=== PATIENT | female | born 1960 | race Caucasian/White ===

== ENCOUNTER → 2023-07-15 14:36 | Outpatient (REF) | payer OTHER, SELFPAY | LOC: WDC 14:36 | PROVIDERS: ATTENDING PHYSICIAN Obstetrics & Gynecology Gynecology; FAMILY PHYSICIAN Internal Medicine | DX: Z12.31 Encounter for screening mammogram for malignant neoplasm of breast (principal); Z78.0 Asymptomatic menopausal state | CPT/HCPCS: 77063; 77067; 77080 ==

== ENCOUNTER → 2023-08-26 15:16 | Outpatient (REF) | payer OTHER, SELFPAY | LOC: RAD 15:16 | PROVIDERS: ATTENDING PHYSICIAN Nurse Practitioner | DX: M25.561 Pain in right knee (principal) | CPT/HCPCS: 73564 ==

== ENCOUNTER → 2023-09-22 10:59 | Outpatient (REF) | payer OTHER, SELFPAY | LOC: MRI 3T 10:59 | PROVIDERS: ATTENDING PHYSICIAN Physician Assistant; FAMILY PHYSICIAN Internal Medicine | DX: M25.561 Pain in right knee (principal) | CPT/HCPCS: 73721 ==

== ENCOUNTER 2023-09-27 22:33 | Inpatient (IN) | payer OTHER, SELFPAY ==
[2023-09-27 16:14] VITALS: BP 125/59
--- NOTE | 2023-09-27 16:18 | ED.GENMED ---
History of Present Illness
General
Chief Complaint: Fainting/Passed Out
Source: patient
Exam Limitations: none
Time Seen by Provider: 09/27/23 16:08
Travel History
Have you had any contact with someone who has COVID-19?: No
Do you have any symptoms of coronavirus? Fever > 100 degrees, chills, cough, shortness of breath, sore throat, loss of taste or smell, muscle aches, or headache?: No
History of Present Illness
History of Present Illness:
63-year-old female otherwise fairly healthy presents complaining of pain to the left arm and wrist after fall. She tripped and hit the left side of her body on pavement. She hit her face as well. Following the fall she passed out at the scene and
passed out in room for EMS and nearly passed out while here in the emergency room. She believes this was a response to her pain she is experiencing to the left arm. She denies chest pain or shortness of breath. There is no preceding palpitations
or dizziness prior to the fall. She was brought here in a cervical collar. She is not anticoagulated. No other
Phy Exam
Physical Exam
Physical Exam:
General: Well-appearing female no acute respiratory distress
HEENT: Normocephalic pupils equal round reactive to light cervical spine and collar
Heart: Regular rate and rhythm no murmurs
Lungs: Clear no wheeze
Musculoskeletal exam: Cervical spine and collar nontender through the collar. There is swelling and deformity noted to the left upper arm. The left wrist is slightly tender. The elbow is nontender
Neurologic: Alert and oriented no facial asymmetry conversing appropriately
Ext: no cyanosis
Course
Orders/Labs/Results
Orders:
Orders
09/27/23 16:05
EKG [Electrocardiogram (*1)] Urgent
Reason for Study: Chest Pain
EKG- Treatment ONCE
09/27/23 16:11
Complete Blood Count/With Diff Urgent
Comprehensive Metabolic Panel Urgent
09/27/23 16:20
CT Cervical Spine W/o Iv Contr Urgent
Comment:
Reason For Exam: fall, syncope
CT Head W/o Iv Contrast Urgent
Comment:
Reason For Exam: fall
CR Humerus - Left Min 2 Views* Urgent
Comment:
Reason For Exam: pain, swelling, fall
CR Wrist - Left Min 3 Views Urgent
Comment:
Reason For Exam: fall
09/27/23 16:44
Troponin I Routine
09/27/23 17:36
Ketorolac [Toradol] 15 mg IV NOW STA
09/27/23 19:08
HYDROmorphone [Dilaudid] 0.5 mg IV NOW STA
09/27/23 20:43
Ondansetron Orally Disint [Zofran Odt (Orally Disintegrating)] 4 mg PO NOW STA
09/27/23 20:48
Ondansetron Orally Disint [Zofran Odt (Orally Disintegrating)] 4 mg .ROUTE .STK-MED ONE
09/27/23 21:17
Immobilizer [Braces/Immobilizers] As Directed
Type of Brace/Immobilizer: Splint
Location for Brace/Immobilizer: Left Upper Arm
09/27/23 21:37
ORTHOPEDIC CONSULT Routine
Consulting Provider: Jonny Charles
Was physician already notified: Yes
Reason for consult: right humerus fx
Abnormal Lab Results
09/27/23
16:11
RBC 3.64 L 10^6/uL
(4.20-5.40)
Hgb 11.4 L g/dL
(12.0-16.0)
Hct 32.6 L %
(37.0-47.0)
MCH 31.3 H pg
(27.0-31.0)
Abs Immat Gran (auto) 0.1 H 10^3/uL
(0-0.05)
Absolute Monos (auto) 1.0 H 10^3/uL
(0.1-0.6)
Immature Gran % 0.8 H %
(0-0.5)
Monocytes % 9.4 H %
(1.7-9.3)
BUN 25 H mg/dl
(7-17)
Glucose 128 H mg/dl
(70-99)
09/27/23 16:11
09/27/23 16:11
Vital Signs
Initial and Last Documented VS:
Initial Vital Signs
Temp Pulse Resp BP Pulse Ox
98.3 F 63 20 125/59 98
09/27/23 16:14 09/27/23 16:14 09/27/23 16:14 09/27/23 16:14 09/27/23 16:14
Last Documented Vital Signs
Temp Pulse Resp BP Pulse Ox
98.3 F 63 20 125/59 98
09/27/23 16:14 09/27/23 16:14 09/27/23 16:14 09/27/23 16:14 09/27/23 16:14
MDM/Problems Addressed
Differential Diagnosis Includes:
Fall with left arm pain. She also has had recurrent vasovagal of her syncopal episode since the fall. I personally visualized x-rays of the left humerus which demonstrate a displaced and angulated midshaft fracture. She is intact neurovascular to
the hand. Left wrist x-rays were negative. CT of the head and cervical spine were also negative. Patient reevaluated multiple times. She has recurrent near syncope since the fall including during splint application and once trying to stand out
of bed. Discussed fracture with orthopedics who recommended the splint application. I applied coapt splint using cast padding 3 inch OCL and Mario Alberto bandages. Given the recurrent symptoms of near syncope or vasovagal event will keep in hospital.
*Critical Care Note
Total Time (30-74mins, 75-104mins- exclusive of procedures): Not Applicable
Update Note
Update Note:
Fall with left arm pain. Following the fall she has multiple near syncopal versus syncopal episodes. EKG shows sinus rhythm without ischemia. Will place on monitor. Suspect near syncope may be pain related To vasovagal response. But will check
labs. Given the syncopal symptoms after fall CT head and cervical spine pending. X-ray left arm and left wrist pending
ED Attending Note
-
Portions of this chart may have been created with voice recognition software.� Occasional wrong word or��sound alike� substitutions may have occurred due to the inherent limitations of voice recognition software.
Discharge Plan
Departure
Patient Disposition: Admit
Date of Disposition: 09/27/23
Time of Disposition: 21:53
Admit to: Telemetry
Presentation/result/management discussed w/ accepting MD/DO: Hospitalist
Discharge Problem:
Near syncope, Fracture, humerus
Referrals:
Yamini Morgan MD [Family Provider] -
Interventions
Interventions:
*Risk Screen - Suicide Last Done: 09/27/23 16:52
*General Assessment Last Done: 09/27/23 16:52
*Neglect/Abuse Screening Last Done: 09/27/23 16:52
ED- Fall Risk Assessment Last Done: 09/27/23 16:52
*ED COVID-19 Vaccine History Last Done: 09/27/23 16:52
ED- Cardiac Assessment Last Done: 09/27/23 16:52
ED- Neurological Assessment Last Done: 09/27/23 16:52
Discharge Date and Time
Print Language: [place]
[2023-09-27 16:29] LABS: % Basophils 0.5 % (0-2); % Eosinophils 3.5 % (0-6); % Immature Granulocytes 0.8 % (0-0.5); % Lymphocytes 32.7 % (20.5-51.1); % Monocytes 9.4 % (1.7-9.3); % Neutrophils 53.1 % (42.2-75.2); Absolute Basophils 0.1 10^3/uL (0-0.2); Absolute Eosinophils 0.4 10^3/uL (0-0.7); Absolute Immature Granulocytes 0.1 10^3/uL (0-0.05); Absolute Lymphocytes 3.4 10^3/uL (1.2-3.4); Absolute Neutrophils 5.6 10^3/uL (1.4-6.5); Hematocrit 32.6 % (37.0-47.0); Hemoglobin 11.4 g/dL (12.0-16.0); Mean Corpuscular Hgb 31.3 pg (27.0-31.0); Mean Corpuscular Volume 89.6 fL (81.0-99.0); Nucleated Red Blood Cells % 0 %; Platelet Count 306 10^3/uL (130-400); Red Blood Cell Count 3.64 10^6/uL (4.20-5.40); Red Cell Dist. Width 12.2 % (11.5-14.5); White Blood Cell Count 10.5 10^3/uL (4.8-10.8)
[2023-09-27 16:39] LABS: ALT (SGPT) 24 U/L (0-35); AST (SGOT) 26 U/L (14-36); Albumin 4.3 g/dl (3.5-5.0); Alkaline Phosphatase 87 U/L (38-126); Blood Urea Nitrogen 25 mg/dl (7-17); Calcium 9.8 mg/dl (8.4-10.2); Carbon Dioxide 27 mmol/L (22-30); Chloride 99 mmol/L (98-107); Estimated Creatinine Clearance 92 ml/min; Glucose 128 mg/dl (70-99); Potassium 3.5 mmol/L (3.5-5.1); Sodium 135 mmol/L (135-145); Total Bilirubin 0.2 mg/dl (0.2-1.3); Total Protein 7.6 g/dl (6.3-8.2); eGFR > 60.00
[2023-09-27 17:12] LABS: Troponin I < 0.012 ng/ml
[2023-09-27] MEDS: TORADOL 15 MG IV (17:46)
[2023-09-27] MEDS: DILAUDID 0.5 MG IV (19:13)
[2023-09-27] MEDS: ZOFRAN ODT (ORALLY DISINTEGRATING) 4 MG PO (20:48)
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
[2023-09-27 23:13] VITALS: BP 125/58
--- NOTE | 2023-09-27 23:15 | PTCARENOTE ---
Pt arrived to unit and ambulated from the wheelchair to the bed with +1 assistance. Pt VSS and described 6/10 pain to humerus upon positional changes. Pt set up with IV fluids, telemetry monitoring applied, and pain managed with PRN. Pt oriented to
room and call cortés within reach.
[2023-09-27 23:45] VITALS: BP 127/67; BMI 37.1
[2023-09-28] VITALS (8 sets, daily range): BP systolic 99–149; BP diastolic 50–71; PULSE 74; O2SAT 96
[2023-09-28] MEDS: NSS 1000 IV (00:33)
[2023-09-28] MEDS: DILAUDID 0.5 MG IV ×2 (00:34→04:41)
--- NOTE | 2023-09-28 08:09 | CON.ORTHO ---
Consultation
-
Date/Time Consultation Requested: 09/27/2023; time unknown
Date/Time Consultation Performed: 09/28/2023; 0745
Requesting Provider: unknown
Performing Provider: Ilana Chandler PA-C / Dr. Jonny Charles
Reason for Consultation: Left humerus fracture
Consultation - Orthopedics
History
Ms. Fowler is a 63-year-old female with past medical history significant for breast cancer seen today for evaluation of her left arm. She reports she was out with friends yesterday when she fell and landed on her left arm. She reports
immediate onset of pain in the arm, and did have a subsequent syncopal episode secondary to pain. She presented to [facility] ED via EMS where x-rays revealed midshaft humerus fracture. She reports any pain in her arm is well-controlled
at present. She denies history of treatment for this arm in the past.
She does have a history of breast cancer status post mastectomy and sentinel node biopsy. She denies past medical history of CVA, DVT, NV or diabetes mellitus. She is not on any daily blood thinners. She lives at home with her . She
denies any known history of difficulty with anesthesia.
Allergies / Home Medications
Allergy/AdvReac Type Severity Reaction Status Date / Time
azithromycin Allergy Unknown Verified 09/27/23 18:51
levofloxacin [From Levaquin] Allergy Unknown Verified 09/27/23 18:50
Sulfa (Sulfonamide Allergy Unknown Verified 09/27/23 18:50
Antibiotics)
�Medication �Instructions �Recorded
Feosol 1 tab PO DAILY 09/27/23
M.V.I. Adult 1 tab PO DAILY 09/27/23
Medrol (Dereje) 4 mg PO DAILY PRN sunburn 09/27/23
Vitamin D3 2,000 units PO DAILY 09/27/23
collagen 1 cap PO DAILY 09/27/23
lysine 1 cap PO DAILY 09/27/23
Vital Signs / Lab Results
Temp Pulse Resp BP Pulse Ox
98.5 F 75 16 119/64 98
09/28/23 07:00 09/28/23 07:00 09/28/23 07:00 09/28/23 07:00 09/28/23 07:00
09/27/23 16:11
09/27/23 16:11
XR L Humerus IMPRESSION:
ACUTE FRACTURE of the LEFT MID HUMERAL DIAPHYSIS with severe displacement and angulation of the distal humeral shaft.
Directed exam of left upper extremity reveals splint intact to upper arm. No tenderness to palpation throughout the forearm, wrist or hand. Patient able to wiggle fingers, flex and extend wrist. Wrist extension does elicit pain. Sensation intact to
light touch. Palpable radial pulse.
Assessment / Plan
Left midshaft humerus fracture
--Unfortunately, Ana Maria sustained a midshaft humerus fracture with significant displacement in her fall. We recommend proceeding with surgical fixation of her fracture. We are hoping to do this with an intramedullary nail, but we did also discuss
the possibility of open reduction internal fixation. The risks, benefits, alternatives, recovery process and potential complications were discussed in detail. She verbalized understanding that radial nerve injury and subsequent wrist drop is a
risk of this fracture and surgical intervention. She would like to proceed with surgical intervention of her fracture. We will proceed with OR tomorrow for IM nail versus ORIF of her left humerus under the direction of Dr. Charles. Surgical and
blood consents are signed and in the patient's chart.
-- Continue with immobilization in splint and sling until surgery.
-- N.p.o. after midnight for OR 09/29/23.
-- Continue pain control per primary.
-- Ice for pain and edema control.
--T+S ordered.
-- Antibiotics ordered to OR.
-- Orthopedics will continue to follow along.
[2023-09-28] MEDS: DILAUDID 0.25 MG IV ×2 (08:55→22:04)
[2023-09-28] MEDS: ZOFRAN 4 MG IV (10:13)
--- NOTE | 2023-09-28 12:36 | CM ---
Patient seen bedside.
IA completed.
Patient lives with spouse in a 1 story home with basement and 2-3 steps.
Patient independent prior to admission without assistive devices.
Patient drives.
Patient s/p fall, Fx Humerus s/p fall, scheduled for OR tomorrow.
PCP: Dr Morgan
Pharmacy: [facility]
Plans: home no needs anticipated. spouse will transport.
[2023-09-28] MEDS: ROXICODONE 5 MG PO (13:36)
--- NOTE | 2023-09-28 14:41 | PTCARENOTE ---
Telemetry alarm review noted with 2 episodes this am (1007) of bradycardia 5-6 seconds each-appears as every other p-wave non-conducted. Dr. Weinberg informed.
--- NOTE | 2023-09-28 15:52 | W.PN.HOSP.TC ---
Addendum entered and electronically signed by Levar Weinberg MD 09/28/23 16:14:
will hold Lovenox after surgery
Original Note:
Today's Communication/Plan
-
EKG
Trop
Cards eval
For OR in am
Assessment / Plan
Assessment / Plan
63-year-old female admitted after a fall. She lost consciousness for sometime. Patient also had another episode of loss of consciousness/syncope in the ambulance. And 1 episode again in the ER while splint was placed in the left arm.
CVS: S1-S2 normal
Chest: CTA B/L
Abdomen: Soft, NT / Bowel sounds present
Extremities: No edema, normal pulses, left arm on a sling
ELECTRIC FORK OPERATOR: Non focal exam
# Syncope-unclear reasons however telemetry has bradycardia, intermittent Mobitz type II?
Patient states that pain made her pass out which could be a reason too-vasovagal
Therefore we will request cardiology evaluation
# Left humerus fracture
Continue immobilization with splint and sling
OR planned for 09/29/2023
# Obesity-with a BMI of 37
# DVT prophylaxis-Lovenox
# Full code
Discussed with nursing
Discussed with cardiology
Anticipated Discharge: 24 - 48 hours
Subjective/Interval History
-
Date of Service: September 28, 2023
Objective Data
-
Vital Signs:
Vital Signs
Temp Pulse Resp BP Pulse Ox
98.7 F 70 14 99/50 95
09/28/23 15:00 09/28/23 15:00 09/28/23 15:00 09/28/23 15:00 09/28/23 15:00
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
[2023-09-28 16:59] LABS: Troponin I < 0.012 ng/ml
[2023-09-28] MEDS: ROXICODONE 10 MG PO (17:37)
[2023-09-28] MEDS: NSS IV (18:31)
[2023-09-28 22:49] LABS: Troponin I < 0.012 ng/ml
[2023-09-28 23:32] LABS: TSH 3.56 uIU/ml (0.47-4.68)
[2023-09-29] VITALS (10 sets, daily range): BP systolic 123–174; BP diastolic 60–127
[2023-09-29 00:04] LABS: Vitamin B12 896 pg/ml (239-931)
[2023-09-29] MEDS: DILAUDID 0.25 MG IV ×4 (02:05→16:09)
[2023-09-29 04:54] LABS: Troponin I < 0.012 ng/ml
--- NOTE | 2023-09-29 09:02 | W.PN.UPDATE ---
Update Note
Progress Note Update
Mrs. Fowler was seen on AM rounds. She is resting comfortably in bed. She reports her pain is well controlled with pain medications as needed.
Directed exam of left upper extremity reveals splint intact to upper arm. No tenderness to palpation throughout the forearm, wrist or hand. Patient able to wiggle fingers, flex and extend wrist. Wrist extension does elicit pain. Sensation intact to
light touch. Palpable radial pulse.
Left midshaft humerus fracture
- -Plan for OR today for IM nail vs ORIF of her left humerus under the direction of Dr. Charles
-- Continue with immobilization in splint and sling until surgery.
-- Remain NPO
-- Continue pain control as needed
-- Ice for pain and edema control
-- T+S complete
-- Antibiotics ordered to OR.
-- Orthopedics will continue to follow along.
--- NOTE | 2023-09-29 13:50 | W.PN.CARDCBS ---
Today's Communication / Plan
-
Stable cardiology status for shoulder surgery
Will place monitor on discharge
Outpatient echo when shoulder has healed
Impression / Plan
-
PCP: Dr. Morgan
Cardiology: None prior to admission
Impression:
Mechanical fall and left humerus fracture 09/27/23
Syncope, h/o neurocardiogenic syncope since childhood
h/o breast cancer and left mastectomy
Wenckebach on tele 09/28/23
Plan:
She had syncope following mechanical fall. Likely had vagal syncope due to pain. She has episodes of second-degree AV block on telemetry on admission
Okay for surgery without further testing
We will plan on monitor prior to discharge
No indication for pacemaker at present
Will plan on outpatient echocardiogram once safe from a LUE mobility standpoint.
Discussed with patient and at bedside as well as nurse
PREADMIT DATA
-Patient came to [facility] last night after a fall and left humerus fracture and cardiology has been consulted. Patient was walking in a parking lot last night when she tripped and fell. She tried to avoid landing on her face and instead landed on her
left side, mostly her arm. She sat up and told her friend that she thought she broke her arm and then lost consciousness. Paramedics brought her to [facility] and then after being given pain meds and having her arm manipulated for a splint she had another
episode of syncope and also vomited that time. She reports essentially a lifelong h/o syncope with her first episode that she can recall happening as a child in [place]. She has had syncope with phlebotomy as well. Tele reviewed and there was a
single recorded event of Wenckebach and patient was not symptomatic with this. No h/o echo or cardiac work-up for syncope. No FH of sudden cardiac .
Progress Note - Application Developer
Subjective
Date of Service: September 29, 2023
No chest pain or shortness of breath. No heart block on telemetry
Objective
Labs:
09/27/23 16:11
09/27/23 16:11
Labs
Hgb 11.4 g/dL (12.0-16.0) L 09/27/23 16:11
Hct 32.6 % (37.0-47.0) L 09/27/23 16:11
Plt Count 306 10^3/uL (130-400) 09/27/23 16:11
Sodium 135 mmol/L (135-145) 09/27/23 16:11
Potassium 3.5 mmol/L (3.5-5.1) 09/27/23 16:11
BUN 25 mg/dl (7-17) H 09/27/23 16:11
Creatinine 0.6 mg/dL (0.6-1.0) 09/27/23 16:11
Glucose 128 mg/dl (70-99) H 09/27/23 16:11
Troponins
09/27/23 09/27/23 09/28/23
16:11 16:44 16:21
Troponin I Cancelled < 0.012 < 0.012
09/28/23 09/29/23
22:19 04:14
Troponin I < 0.012 < 0.012
Vital Signs and I&O:
Vital Signs
Temp Pulse Resp BP Pulse Ox
99.3 F 68 16 134/63 93
09/29/23 11:02 09/29/23 11:02 09/29/23 11:02 09/29/23 11:02 09/29/23 11:02
Vital Signs
Temp Pulse Resp BP Pulse Ox
99.3 F 68 16 134/63 93
09/29/23 11:02 09/29/23 11:02 09/29/23 11:02 09/29/23 11:02 09/29/23 11:02
Intake & Output
09/27/23 09/28/23 09/29/23 09/30/23
06:59 06:59 06:59 06:59
Intake Total 1759
Balance 1759
Physical Exam
Physical Exam
General: Well developed, well nourished in NAD.
Neck: Supple, no JVD, HJR, carotids +2 B/L, no bruits bilaterally.
Heart: Non displaced PMI, RRR, no murmurs, No S3, S4, no rubs.
Lungs: Clear to auscultation bilaterally, no wheeze, rhonchi, rubs bilaterally,
normal expiratory phase.
Left arm sling noted
Extremities: No clubbing, cyanosis or edema bilaterally.
Neuro: Grossly nonfocal, awake, alert and oriented x3.
--- NOTE | 2023-09-29 15:00 | W.PN.HOSP.TC ---
Today's Communication/Plan
-
OR today
Assessment / Plan
Assessment / Plan
63-year-old female admitted after a fall. She lost consciousness for sometime. Patient also had another episode of loss of consciousness/syncope in the ambulance. And 1 episode again in the ER while splint was placed in the left arm.
CVS: S1-S2 normal
Chest: CTA B/L
Abdomen: Soft, NT / Bowel sounds present
Extremities: No edema, normal pulses, left arm on a sling
SENIOR BUSINESS MANAGER: Non focal exam
# Syncope-unclear reasons however telemetry has bradycardia, intermittent Mobitz type II?
Patient states that pain made her pass out which could be a reason too-vasovagal
Cards eval appreciated
# Left humerus fracture
Continue immobilization with splint and sling
OR planned for 09/29/2023
# Obesity-with a BMI of 37
# DVT prophylaxis-Lovenox
# Full code
Discussed with nursing
Discussed with Family at bed side
Anticipated Discharge: Within 24 hours
Subjective/Interval History
-
Date of Service: September 29, 2023
Objective Data
-
Vital Signs:
Vital Signs
Temp Pulse Resp BP Pulse Ox
99.3 F 68 16 134/63 93
09/29/23 11:02 09/29/23 11:02 09/29/23 11:02 09/29/23 11:02 09/29/23 11:02
I&O
09/28/23 09/29/23 09/30/23
06:59 06:59 06:59
Intake Total 1759
Balance 1759
[2023-09-29] MEDS: BENADRYL 25 MG IV (16:14)
--- NOTE | 2023-09-29 22:59 | W.IMMPOSTOP ---
Surgical Immed Post Op Note
-
Primary Surgeon: Araceli
Pre-op Diagnosis: Left humeral shaft fracture
Post-op Diagnosis: Same
Procedure Performed: Left humerus IM nail
Anesthesia Type: General and regional block
Specimen / Cultures: None
Estimated Blood Loss: 10cc
Complications: None
Operative Findings: Dictated
Plan:
- NWB LUE. Sling
- Dispo once pain is controlled
- F/U in office in 10-14 days
[2023-09-30] VITALS (8 sets, daily range): BP systolic 119–172; BP diastolic 56–89; PULSE 60–65; O2SAT 96
--- NOTE | 2023-09-30 02:32 | PTCARENOTE ---
23:45 pt admit from PACU with LUE sling in place, aaox3, denies pain, oriented to unit.
--- NOTE | 2023-09-30 07:08 | W.PN.ORTHO ---
Today's Communication / Plan
-
63yo female POD#[address] Charles
--Non weight bearing to left upper extremity. Wear sling for comfort
--PT/OT
--Mechanical DVT prophylaxis
--Dressings to remain in place for 7-10 days
--Continue with pain management as needed. Apply ice and elevate as needed to help with edema control
--Follow up outpatient in 2 weeks for repeat xrays and suture/staple removal
--Discharge planning
--Will continue to follow along
Assessment
.
Distal Motor Intact: Yes
Dressing:
Clean, dry and intact.
Plan
.
Surgery / Date: Left humerus IMN 09/29/23 Dr. Charles
Activity:
Out of bed.
PT/OT
Subjective
.
.:
Patient resting comfortably in bed this morning. She reports that her pain is well controlled. She does have a little tingling in her fingers from the nerve block.
Vital Signs and Labs
.
Vital Signs and Labs:
Lab Results
09/27/23 16:11
09/27/23 16:11
Temp Pulse Resp BP Pulse Ox
98.1 F 72 18 137/78 96
09/30/23 02:45 09/30/23 02:45 09/30/23 02:45 09/30/23 02:45 09/30/23 02:45
Physical Exam
-
Directed exam of left upper extremity with Aquacel and gauze/ioban dressings clean, dry, and intact. Mild edema to upper arm. Able to perform full elbow, wrist, and hand range of motion. Sensation intact to light touch. Cap refill <2secs
[2023-09-30] MEDS: ROXICODONE 5 MG PO (09:18)
[2023-09-30 09:40] LABS: Hematocrit 32.7 % (37.0-47.0); Hemoglobin 11.1 g/dL (12.0-16.0)
--- NOTE | 2023-09-30 10:09 | W.PN.HOSP.TC ---
Addendum entered and electronically signed by Levar Weinberg MD 09/30/23 11:21:
Last Tetanus injection 2011
will give one here if patient agreable.
Addendum entered and electronically signed by Levar Weinberg MD 09/30/23 10:20:
Patient was not Medrol Dosepak recently.
She had mild rashes after the wipes used prior to the OR. Resolved with Benadryl
No rash today
Original Note:
Today's Communication/Plan
-
PT OT
Discharge planning
Will give Tetanus vaccine prior to discharge if she has not had in the past 10 years
Assessment / Plan
Assessment / Plan
63-year-old female admitted after a fall. She lost consciousness for sometime. Patient also had another episode of loss of consciousness/syncope in the ambulance. And 1 episode again in the ER while splint was placed in the left arm.
CVS: S1-S2 normal
Chest: CTA B/L
Abdomen: Soft, NT / Bowel sounds present
Extremities: No edema, normal pulses, left arm on a sling, shoulder dressing with mild shadowing. , normal pulses left
Abrasion both palms
AC/DC REWINDER: Non focal exam
# Syncope-unclear reasons however telemetry has bradycardia, intermittent Mobitz type II?
Patient states that pain made her pass out which could be a reason too-vasovagal
Cards eval appreciated
# Left humerus fracture
Left humerus IM nail 09/29/23 by
Pain control
Non weight bearing to left upper extremity. Wear sling for comfort
PT-OT
Dressings to remain in place for 7-10 days
Apply ice and elevate as needed to help with edema control
Follow up outpatient in 2 weeks for repeat xrays and suture/staple removal
# Obesity-with a BMI of 37
# DVT prophylaxis-Lovenox
# Full code
Discussed with nursing
Discussed with Family at bed side
D/W case management
Anticipated Discharge: Today
Subjective/Interval History
-
Date of Service: September 30, 2023
Objective Data
-
Labs:
Laboratory Results
09/30/23
08:44
Hgb 11.1 L
Hct 32.7 L
Sodium Pending
Potassium Pending
Chloride Pending
Carbon Dioxide Pending
BUN Pending
Creatinine Pending
Glucose Pending
Calcium Pending
Vital Signs:
Vital Signs
Temp Pulse Resp BP Pulse Ox
98.3 F 72 18 119/56 91
09/30/23 07:05 09/30/23 07:05 09/30/23 07:05 09/30/23 07:05 09/30/23 07:05
I&O
09/29/23 09/30/23 10/01/23
06:59 06:59 06:59
Intake Total 1760 / 1760 50 / 50
Output Total 500 / 500
Balance 1760 / 1760 -450 / -450
[2023-09-30] MEDS: TORADOL 15 MG IV (10:14)
[2023-09-30 10:42] LABS: Blood Urea Nitrogen 13 mg/dl (7-17); Calcium 9.7 mg/dl (8.4-10.2); Carbon Dioxide 26 mmol/L (22-30); Chloride 98 mmol/L (98-107); Estimated Creatinine Clearance 92 ml/min; Glucose 135 mg/dl (70-99); Potassium 4.5 mmol/L (3.5-5.1); Sodium 135 mmol/L (135-145); eGFR > 60.00
--- NOTE | 2023-09-30 11:18 | W.DS.TRANS ---
Addendum entered and electronically signed by Levar Weinberg MD 09/30/23 15:37:
Dictation- [id number]
Original Note:
DC Summary - Medical Massage Therapist
-
Discharge Instructions:
Discharge Diagnosis/Procedures Left humerus fracture status post nail fixation,
syncope
Diet As tolerated
Activity As tolerated
Driving Restrictions No driving
Instructions:
Stand-Alone Forms:
Changes to Home Medications: Yes
Discharge Medications:
DC Medications w/original date entered in [employer]
Feosol 1 tab PO DAILY Supplement 09/27/23
M.V.I. Adult 1 tab PO DAILY Supplement 09/27/23
Vitamin D3 2,000 units PO DAILY Supplement 09/27/23
acetaminophen 500 mg tablet (Tylenol Extra Strength) 1,000 mg (2 x 500 mg) PO Q6HPRN PRN mild pain #30 tabs 09/30/23
famotidine 20 mg tablet (Pepcid) 20 mg PO BID PRN when you take Ibuprofen #20 tabs 09/30/23
ibuprofen 600 mg tablet 600 mg PO TID PRN moderate pain #30 tabs 09/30/23
oxycodone 5 mg tablet 5 mg PO Q6HPRN PRN moderate pain #20 tabs 09/30/23
polyethylene glycol 3350 17 gram oral powder packet (HealthyLax) 17 g PO DAILYPRN PRN constipation #0 ea 09/30/23
Home Medication Changes
new
acetaminophen 500 mg tablet (Tylenol Extra Strength) 1,000 mg (2 x 500 mg) PO Q6HPRN PRN mild pain #30 tabs 09/30/23
famotidine 20 mg tablet (Pepcid) 20 mg PO BID PRN when you take Ibuprofen #20 tabs 09/30/23
ibuprofen 600 mg tablet 600 mg PO TID PRN moderate pain #30 tabs 09/30/23
oxycodone 5 mg tablet 5 mg PO Q6HPRN PRN moderate pain #20 tabs 09/30/23
polyethylene glycol 3350 17 gram oral powder packet (HealthyLax) 17 g PO DAILYPRN PRN constipation #0 ea 09/30/23
Pending Results: No
--- NOTE | 2023-09-30 11:19 | W.[place]-PDMP ---
[place]-PDMP
-
Checked the [place]- Prescription Drug Monitoring Program website, no red flags identified; safe to proceed with prescription.
--- NOTE | 2023-09-30 12:17 | CM ---
Met with patient. Went over discharge plan. Added cardiology group to discharge that has seen her here for her to setup follow up.
Discussed bathing and dressing with arm in sling. She has hand held shower and may use a seat in shower.
She is hoping to go home today.
PLAN: home today
[2023-09-30] MEDS: ROXICODONE 10 MG PO (13:13)
[2023-09-30] MEDS: ADACEL 0.5 ML IM (13:15)
--- NOTE | 2023-09-30 14:49 | W.PN.CARDCBS ---
Addendum entered and electronically signed by Viet Pearl MD 09/30/23 15:18:
I saw and examined the patient.
The Robotics Technologist's note was reviewed and I agree with the note.
Comment:
GEN: No distress, awake, Ox3
HEENT: supple, anicteric, mmm
LUNGS: CTA, no wheezes/rales
CV: Reg, S1/S2, 1/6 syst LSB, no gallop
ABD: soft, BS+, NT/ND
EXT: No edema
NEURO: Gross non-focal
SKIN: No rash
Plan:
No further events on telemetry. Did well status post left humerus repair.
Will arrange outpatient echo and monitor.
Okay for discharge.
Original Note:
Today's Communication / Plan
-
OP echo, monitor, and follow up arranged
for DC today
Impression / Plan
-
PCP: Dr. Morgan
Cardiology: None prior to admission
Impression:
Mechanical fall 09/27/23
left humerus fracture s/p repair 09/29/23
Syncope, h/o neurocardiogenic syncope since childhood
h/o breast cancer and left mastectomy
Wenckebach on tele 09/28/23
Plan:
-she had syncope following mechanical fall. likely vasovagal syncope due to pain from humerus fracture with fall. she has history of vasovagal syncope in past
-she was also noted to have transient episodes of wenckebach on tele on admission
-s/p repair of L humerus fracture 09/28
-no further episodes of wenckebach by review of tele overnight
-arranged for OP echo (due to current LUE mobility limitations) and 7 day gambling monitor
-OP cardiac follow up arranged
-for DC today
-d/w nursing
PREADMIT DATA:
-Patient came to [facility] last night after a fall and left humerus fracture and cardiology has been consulted. Patient was walking in a parking lot last night when she tripped and fell. She tried to avoid landing on her face and instead landed on her
left side, mostly her arm. She sat up and told her friend that she thought she broke her arm and then lost consciousness. Paramedics brought her to [facility] and then after being given pain meds and having her arm manipulated for a splint she had another
episode of syncope and also vomited that time. She reports essentially a lifelong h/o syncope with her first episode that she can recall happening as a child in [place]. She has had syncope with phlebotomy as well. Tele reviewed and there was a
single recorded event of [place] and patient was not symptomatic with this. No h/o echo or cardiac work-up for syncope. No FH of sudden cardiac .
Progress Note - Parking Assistant
Subjective
Date of Service: September 30, 2023
no lightheadedness/dizziness.
Objective
Labs:
09/30/23 08:44
09/30/23 08:44
Labs
Hgb 11.1 g/dL (12.0-16.0) L 09/30/23 08:44
Hct 32.7 % (37.0-47.0) L 09/30/23 08:44
Plt Count 306 10^3/uL (130-400) 09/27/23 16:11
Sodium 135 mmol/L (135-145) 09/30/23 08:44
Potassium 4.5 mmol/L (3.5-5.1) D 09/30/23 08:44
BUN 13 mg/dl (7-17) 09/30/23 08:44
Creatinine 0.6 mg/dL (0.6-1.0) 09/30/23 08:44
Glucose 135 mg/dl (70-99) H 09/30/23 08:44
Troponins
09/27/23 09/27/23 09/28/23
16:11 16:44 16:21
Troponin I Cancelled < 0.012 < 0.012
09/28/23 09/29/23
22:19 04:14
Troponin I < 0.012 < 0.012
Vital Signs and I&O:
Vital Signs
Temp Pulse Resp BP Pulse Ox
98.6 F 66 18 149/67 94
09/30/23 11:05 09/30/23 11:05 09/30/23 11:05 09/30/23 11:05 09/30/23 11:05
Vital Signs
Temp Pulse Resp BP Pulse Ox
98.6 F 66 18 149/67 94
09/30/23 11:05 09/30/23 11:05 09/30/23 11:05 09/30/23 11:05 09/30/23 11:05
Intake & Output
09/28/23 09/29/23 09/30/23 10/01/23
07:59 07:59 07:59 07:59
Intake Total 1760 / 1760 50 / 50
Output Total 500 / 500
Balance 1760 / 1760 -450 / -450
== END 2023-09-30 15:34 | disposition home or self-care (01) | DRG 494 ==
LOC: 2 SOUTH 22:33
PROVIDERS: Emergency Medicine; ADMITTING PHYSICIAN Hospitalist; ATTENDING PHYSICIAN Hospitalist; CONSULT PHYSICIAN Internal Medicine Cardiovascular Disease; CONSULT PHYSICIAN Orthopaedic Surgery; EMERGENCY PHYSICIAN Emergency Medicine; FAMILY PHYSICIAN Internal Medicine
PROC: 0PSG06Z Reposition Left Humeral Shaft with Intramedullary Internal Fixation Device, Open Approach (ICD-10-PCS; 2023-09-29)
DX: S42.392A Other fracture of shaft of left humerus, initial encounter for closed fracture (principal); W01.0XXA Fall on same level from slipping, tripping and stumbling without subsequent striking against object, initial encounter; I44.1 Atrioventricular block, second degree; D50.9 Iron deficiency anemia, unspecified; R55 Syncope and collapse; E66.09 Other obesity due to excess calories; Z68.37 Body mass index [BMI] 37.0-37.9, adult; Z85.3 Personal history of malignant neoplasm of breast
CPT/HCPCS: 29125; 70450; 72125; 73060; 73110; 76000; 80048; 80053; 82607; 84443; 84484; 85014; 85018; 85025; 86850; 86900; 86901; 90715; 93005; 96374; 96375; 97162; 97164; 97166; 97530; 97535; 99285

== ENCOUNTER 2023-11-24 09:14 | Outpatient (RCR) | payer OTHER, SELFPAY | END 2023-11-24 23:59 | disposition home or self-care (01) | LOC: RPT 09:14 | PROVIDERS: ATTENDING PHYSICIAN Orthopaedic Surgery; FAMILY PHYSICIAN Internal Medicine | DX: S42.352D Displaced comminuted fracture of shaft of humerus, left arm, subsequent encounter for fracture with routine healing (principal); Z73.6 Limitation of activities due to disability | CPT/HCPCS: 97010; 97110; 97112; 97140; 97162; 97535 ==

== ENCOUNTER → 2023-12-14 08:12 | Outpatient (REF) | payer OTHER, SELFPAY | LOC: RCS 08:12 | PROVIDERS: ATTENDING PHYSICIAN Internal Medicine Cardiovascular Disease; FAMILY PHYSICIAN Internal Medicine | DX: I44.1 Atrioventricular block, second degree (principal); R55 Syncope and collapse | CPT/HCPCS: 93306 ==

== ENCOUNTER 2023-12-24 10:21 | Outpatient (RCR) | payer OTHER, SELFPAY | END 2023-12-24 23:59 | disposition home or self-care (01) | LOC: RPT 10:21 | PROVIDERS: ATTENDING PHYSICIAN Orthopaedic Surgery; FAMILY PHYSICIAN Internal Medicine | DX: S42.352D Displaced comminuted fracture of shaft of humerus, left arm, subsequent encounter for fracture with routine healing (principal); Z73.6 Limitation of activities due to disability | CPT/HCPCS: 97010; 97110; 97112; 97140 ==

== ENCOUNTER 2024-01-15 14:05 | Outpatient (RCR) | payer OTHER, SELFPAY | END 2024-01-15 23:59 | disposition home or self-care (01) | LOC: RPT 14:05 | PROVIDERS: ATTENDING PHYSICIAN Orthopaedic Surgery; FAMILY PHYSICIAN Internal Medicine | DX: Z47.89 Encounter for other orthopedic aftercare (principal); S42.352D Displaced comminuted fracture of shaft of humerus, left arm, subsequent encounter for fracture with routine healing; Z73.6 Limitation of activities due to disability; M62.81 Muscle weakness (generalized); M25.512 Pain in left shoulder | CPT/HCPCS: 97010; 97110; 97112; 97140; 97535 ==

== ENCOUNTER 2024-01-29 09:03 | Outpatient (RCR) | payer OTHER, SELFPAY | END 2024-01-29 12:37 | disposition home or self-care (01) | LOC: RPT 09:03 | PROVIDERS: ATTENDING PHYSICIAN Orthopaedic Surgery; FAMILY PHYSICIAN Internal Medicine | DX: Z47.89 Encounter for other orthopedic aftercare (principal); S42.352D Displaced comminuted fracture of shaft of humerus, left arm, subsequent encounter for fracture with routine healing; Z73.6 Limitation of activities due to disability; M62.81 Muscle weakness (generalized) | CPT/HCPCS: 97110; 97112 ==

== ENCOUNTER 2024-02-15 18:01 | Outpatient (RCR) | payer OTHER, SELFPAY | END 2024-02-15 23:59 | disposition home or self-care (01) | LOC: RPT 18:01 | PROVIDERS: ATTENDING PHYSICIAN Orthopaedic Surgery; FAMILY PHYSICIAN Internal Medicine | DX: Z47.89 Encounter for other orthopedic aftercare (principal); S42.352D Displaced comminuted fracture of shaft of humerus, left arm, subsequent encounter for fracture with routine healing; Z73.6 Limitation of activities due to disability; M62.81 Muscle weakness (generalized) | CPT/HCPCS: 97010; 97110; 97112; 97140; 97161 ==

== ENCOUNTER 2024-03-16 16:07 | Outpatient (RCR) | payer OTHER, SELFPAY | END 2024-03-16 23:59 | disposition home or self-care (01) | LOC: RPT 16:07 | PROVIDERS: ATTENDING PHYSICIAN Orthopaedic Surgery; FAMILY PHYSICIAN Internal Medicine | DX: S42.352D Displaced comminuted fracture of shaft of humerus, left arm, subsequent encounter for fracture with routine healing (principal); Z73.6 Limitation of activities due to disability | CPT/HCPCS: 97110; 97112; 97140 ==

== ENCOUNTER 2024-04-26 10:03 | Outpatient (RCR) | payer OTHER, SELFPAY | END 2024-04-26 23:59 | disposition home or self-care (01) | LOC: RPT 10:03 | PROVIDERS: ATTENDING PHYSICIAN Orthopaedic Surgery; FAMILY PHYSICIAN Internal Medicine | DX: S42.352D Displaced comminuted fracture of shaft of humerus, left arm, subsequent encounter for fracture with routine healing (principal); Z73.6 Limitation of activities due to disability; M62.81 Muscle weakness (generalized) | CPT/HCPCS: 97110; 97112; 97140 ==

== ENCOUNTER 2024-05-23 16:57 | Outpatient (RCR) | payer OTHER, SELFPAY | END 2024-05-23 23:59 | disposition home or self-care (01) | LOC: RPT 16:57 | PROVIDERS: ATTENDING PHYSICIAN Orthopaedic Surgery; FAMILY PHYSICIAN Internal Medicine | DX: S42.352D Displaced comminuted fracture of shaft of humerus, left arm, subsequent encounter for fracture with routine healing (principal); Z73.6 Limitation of activities due to disability; M62.81 Muscle weakness (generalized) | CPT/HCPCS: 97110; 97112; 97140 ==

== ENCOUNTER → 2024-06-17 13:27 | Outpatient (REF) | payer OTHER, SELFPAY | LOC: MRI 3T 13:27 | PROVIDERS: ATTENDING PHYSICIAN Physician Assistant; FAMILY PHYSICIAN Internal Medicine | DX: M75.102 Unspecified rotator cuff tear or rupture of left shoulder, not specified as traumatic (principal) | CPT/HCPCS: 23350; 73040; 73222 ==

== ENCOUNTER 2024-06-20 16:04 | Outpatient (RCR) | payer OTHER, SELFPAY | END 2024-06-20 23:59 | disposition home or self-care (01) | LOC: RPT 16:04 | PROVIDERS: ATTENDING PHYSICIAN Orthopaedic Surgery; FAMILY PHYSICIAN Internal Medicine | DX: S42.352D Displaced comminuted fracture of shaft of humerus, left arm, subsequent encounter for fracture with routine healing (principal); Z73.6 Limitation of activities due to disability; M62.81 Muscle weakness (generalized) | CPT/HCPCS: 97110; 97112; 97140 ==

== ENCOUNTER → 2024-08-02 14:52 | Outpatient (REF) | payer OTHER, SELFPAY | LOC: WDC 14:52 | PROVIDERS: ATTENDING PHYSICIAN Obstetrics & Gynecology Gynecology; FAMILY PHYSICIAN Hospitalist | DX: Z12.31 Encounter for screening mammogram for malignant neoplasm of breast (principal) | CPT/HCPCS: 77063; 77067 ==

== ENCOUNTER → 2024-08-05 09:08 | Outpatient (REF) | payer OTHER, SELFPAY | LOC: WDC 09:08 | PROVIDERS: ATTENDING PHYSICIAN Obstetrics & Gynecology Gynecology; FAMILY PHYSICIAN Hospitalist | DX: R92.8 Other abnormal and inconclusive findings on diagnostic imaging of breast (principal) | CPT/HCPCS: 76642 ==

== ENCOUNTER 2024-08-19 06:04 | Day surgery (SDC) | payer OTHER, SELFPAY ==
[2024-08-15 13:48] LABS: Hematocrit 35.2 % (37.0-47.0); Hemoglobin 11.5 g/dL (12.0-16.0); Mean Corp Hgb Conc. 32.7 g/dL (33.0-37.0); Mean Corpuscular Hgb 30.7 pg (27.0-31.0); Mean Corpuscular Volume 94.1 fL (81.0-99.0); Mean Platelet Volume 10.1 fL (7.4-10.4); Platelet Count 265 10^3/uL (130-400); Red Blood Cell Count 3.74 10^6/uL (4.20-5.40); Red Cell Dist. Width 12.6 % (11.5-14.5); White Blood Cell Count 6.1 10^3/uL (4.8-10.8)
[2024-08-15 14:14] VITALS: BMI 37.1
[2024-08-19] VITALS (13 sets, daily range): BP systolic 110–126; BP diastolic 55–84; BMI 37.1
[2024-08-19] MEDS: TYLENOL 1000 MG PO (06:30)
[2024-08-19] MEDS: MOBIC 15 MG PO (06:47)
[2024-08-19] MEDS: NORMOSOL-R/PLASMALYTE-A 1000 IV (06:48)
== END 2024-08-19 11:50 | disposition home or self-care (01) ==
LOC: SDS 06:04
PROVIDERS: ATTENDING PHYSICIAN Specialist; FAMILY PHYSICIAN Internal Medicine
DX: M75.102 Unspecified rotator cuff tear or rupture of left shoulder, not specified as traumatic (principal); S46.212A Strain of muscle, fascia and tendon of other parts of biceps, left arm, initial encounter; X58.XXXA Exposure to other specified factors, initial encounter; T84.84XA Pain due to internal orthopedic prosthetic devices, implants and grafts, initial encounter; Y83.1 Surgical operation with implant of artificial internal device as the cause of abnormal reaction of the patient, or of later complication, without mention of misadventure at the time of the procedure
CPT/HCPCS: 29827; 29826; 29828; 36415; 73020; 76000; 85027; 93005

== ENCOUNTER 2024-09-21 11:20 | Outpatient (RCR) | payer OTHER, SELFPAY | END 2024-09-21 23:59 | disposition home or self-care (01) | LOC: RPT 11:20 | PROVIDERS: ATTENDING PHYSICIAN Physician Assistant Surgical; FAMILY PHYSICIAN Hospitalist | DX: M25.512 Pain in left shoulder (principal); Z73.6 Limitation of activities due to disability; Z98.890 Other specified postprocedural states | CPT/HCPCS: 97110; 97140; 97161 ==

== ENCOUNTER 2024-10-24 18:44 | Outpatient (RCR) | payer OTHER, SELFPAY | END 2024-10-24 23:59 | disposition home or self-care (01) | LOC: RPT 18:44 | PROVIDERS: ATTENDING PHYSICIAN Physician Assistant Surgical; FAMILY PHYSICIAN Hospitalist | DX: M25.512 Pain in left shoulder (principal); Z47.89 Encounter for other orthopedic aftercare (principal); Z73.6 Limitation of activities due to disability; Z98.890 Other specified postprocedural states; M62.81 Muscle weakness (generalized) | CPT/HCPCS: 97010; 97110; 97112; 97140 ==

== ENCOUNTER → 2024-11-09 14:54 | Outpatient (REF) | payer OTHER, SELFPAY | LOC: WDC 14:54 | PROVIDERS: ATTENDING PHYSICIAN Surgery; FAMILY PHYSICIAN Hospitalist | DX: R92.8 Other abnormal and inconclusive findings on diagnostic imaging of breast (principal) | CPT/HCPCS: 76642 ==

== ENCOUNTER 2024-11-18 15:07 | Outpatient (RCR) | payer OTHER, SELFPAY | END 2024-11-18 23:59 | disposition home or self-care (01) | LOC: RPT 15:07 | PROVIDERS: ATTENDING PHYSICIAN Physician Assistant Surgical; FAMILY PHYSICIAN Hospitalist | DX: Z47.89 Encounter for other orthopedic aftercare (principal); M25.512 Pain in left shoulder; Z73.6 Limitation of activities due to disability; M62.81 Muscle weakness (generalized); Z98.890 Other specified postprocedural states | CPT/HCPCS: 97010; 97110; 97112; 97140 ==

== ENCOUNTER → 2024-11-22 08:07 | Outpatient (REF) | payer OTHER, SELFPAY | LOC: WDC 08:07 | PROVIDERS: ATTENDING PHYSICIAN Surgery; FAMILY PHYSICIAN Hospitalist | DX: N63.31 Unspecified lump in axillary tail of the right breast (principal) | CPT/HCPCS: 76642 ==

== ENCOUNTER 2024-12-12 15:06 | Outpatient (RCR) | payer OTHER, SELFPAY | END 2024-12-12 23:59 | disposition home or self-care (01) | LOC: RPT 15:06 | PROVIDERS: ATTENDING PHYSICIAN Physician Assistant Surgical; FAMILY PHYSICIAN Hospitalist | DX: Z47.89 Encounter for other orthopedic aftercare (principal); M25.512 Pain in left shoulder; Z73.6 Limitation of activities due to disability; M62.81 Muscle weakness (generalized); Z98.890 Other specified postprocedural states | CPT/HCPCS: 97110; 97112; 97140 ==

== ENCOUNTER 2025-01-10 15:59 | Outpatient (RCR) | payer OTHER, SELFPAY | END 2025-01-12 06:59 | disposition home or self-care (01) | LOC: RPT 15:59 | PROVIDERS: ATTENDING PHYSICIAN Physician Assistant Surgical; FAMILY PHYSICIAN Hospitalist | DX: Z47.89 Encounter for other orthopedic aftercare (principal); M25.512 Pain in left shoulder; Z73.6 Limitation of activities due to disability; M62.81 Muscle weakness (generalized); Z98.890 Other specified postprocedural states | CPT/HCPCS: 97110; 97112; 97140 ==